=== PATIENT | female | born 1995 | race Two or more races ===

== ENCOUNTER → 2017-03-02 | Outpatient (REF) | payer OTHER ==
[~2017-03-02] MED LIST: AMOX500T PO; COLA100C5 PO; FERR325T3 PO; IBUP1TAB7 PO; PERCOCET PO
[2017-03-03 11:52] LABS: BASO % 0.4 % (0.0-1.0); EOS # 0.2 10^3/uL (0.0-0.50); EOS % 1.9 % (0.0-3.0); IMMATURE GRANULOCYTE % 0.3 % (0-0); LYMPH # 2.3 10^3/uL (1.5-6.5); LYMPH % 21.6 % (24.0-44.0); MEAN CORPUSCULAR HEMOGLOBIN 29.8 pg (27.0-33.0); MEAN CORPUSCULAR HGB CONC 33.7 g/dl (32.0-36.5); MEAN CORPUSCULAR VOLUME 88.3 fl (80.0-96.0); MONO # 0.8 10^3/uL (0.0-0.8); MONO % 7.2 % (0.0-5.0); NEUTROPHILS # 7.3 10^3/uL (1.8-7.7); NEUTROPHILS % 68.6 % (36.0-66.0); PLATELET COUNT, AUTOMATED 349 10^3/uL (150-450); WHITE BLOOD COUNT 10.6 10^3/uL (4.0-10.0)
[2017-03-03 12:35] LABS: ALBUMIN 3.7 GM/DL (3.2-5.2); ALKALINE PHOSPHATASE 139 U/L (45-117); ALT/SGPT 42 U/L (12-78); ANION GAP 9 MEQ/L (8-16); AST/SGOT 23 U/L (7-37); BILIRUBIN,TOTAL 0.4 MG/DL (0.2-1.0); BLOOD UREA NITROGEN 8 MG/DL (7-18); CARBON DIOXIDE LEVEL 28 MEQ/L (21-32); CHLORIDE LEVEL 104 MEQ/L (98-107); FREE T4 1.08 NG/DL (0.76-1.46); GLOMERULAR FILTRATION RATE > 60.0 (>60); GLUCOSE, FASTING 79 MG/DL (70-105); POTASSIUM SERUM 4.1 MEQ/L (3.5-5.1); SODIUM LEVEL 141 MEQ/L (136-145); TOTAL PROTEIN 7.4 GM/DL (6.4-8.2)
== END ==
LOC: M SFHCCLAY 14:27
PROVIDERS: ATTEND Nurse Practitioner Family
DX: F32.2 Major depressive disorder, single episode, severe without psychotic features (principal); R23.9 Unspecified skin changes; R19.4 Change in bowel habit

== ENCOUNTER → 2018-04-14 | Outpatient (REF) | payer OTHER | LOC: M SFHCCLAY 16:48 | PROVIDERS: ATTEND Nurse Practitioner Family | DX: R35.0 Frequency of micturition (principal) ==

== ENCOUNTER → 2018-06-08 | Outpatient (REF) | payer OTHER | LOC: M LAB REF 17:54 | PROVIDERS: ATTEND Advanced Practice Midwife | DX: Z12.4 Encounter for screening for malignant neoplasm of cervix (principal) ==

== ENCOUNTER → 2018-07-07 | Outpatient (REF) | payer OTHER | LOC: M SFHCCLAY 09:37 | PROVIDERS: ATTEND Family Medicine | DX: J02.9 Acute pharyngitis, unspecified (principal); Z20.818 Contact with and (suspected) exposure to other bacterial communicable diseases ==

== ENCOUNTER → 2019-07-13 | Outpatient (REF) | payer OTHER ==
[2019-07-13 16:19] LABS: BASO # 0.1 10^3/uL (0.0-0.2); BASO % 0.6 % (0.0-1.0); EOS # 0.1 10^3/uL (0.0-0.5); EOS % 1.3 % (0.0-3.0); HEMATOCRIT 38.8 % (36.0-47.0); HEMOGLOBIN 13.1 g/dl (12.0-15.5); LYMPH # 2.7 10^3/uL (1.5-5.0); MEAN CORPUSCULAR HEMOGLOBIN 31.3 pg (27.0-33.0); MEAN CORPUSCULAR HGB CONC 33.8 g/dl (32.0-36.5); MEAN CORPUSCULAR VOLUME 92.8 fl (80.0-96.0); MONO # 0.6 10^3/uL (0.0-0.8); MONO % 6.7 % (0.0-5.0); NEUTROPHILS # 5.3 10^3/uL (1.5-8.5); NEUTROPHILS % 60.2 % (36.0-66.0); PLATELET COUNT, AUTOMATED 329 10^3/uL (150-450); RED BLOOD COUNT 4.18 10^6/uL (4.00-5.40); WHITE BLOOD COUNT 8.7 10^3/uL (4.0-10.0)
[2019-07-13 16:37] LABS: ALBUMIN 3.6 GM/DL (3.2-5.2); ALT/SGPT 48 U/L (12-78); BILIRUBIN,TOTAL 0.9 MG/DL (0.2-1.0); BLOOD UREA NITROGEN 7 MG/DL (7-18); CALCIUM LEVEL 9.2 MG/DL (8.5-10.1); CARBON DIOXIDE LEVEL 27 MEQ/L (21-32); CHLORIDE LEVEL 103 MEQ/L (98-107); CREATININE FOR GFR 0.83 MG/DL (0.55-1.30); GLOMERULAR FILTRATION RATE > 60.0 (>60); GLUCOSE, FASTING 80 MG/DL (70-100); POTASSIUM SERUM 3.8 MEQ/L (3.5-5.1); SODIUM LEVEL 138 MEQ/L (136-145); TOTAL PROTEIN 7.6 GM/DL (6.4-8.2)
== END ==
LOC: M SFHCCLAY 10:01
PROVIDERS: ATTEND Nurse Practitioner Family
DX: N92.1 Excessive and frequent menstruation with irregular cycle (principal); R55 Syncope and collapse

== ENCOUNTER → 2019-09-09 | Outpatient (CLI) | payer BC | LOC: M LABSMTC 12:32 | PROVIDERS: ATTEND Family Medicine | DX: Z03.818 Encounter for observation for suspected exposure to other biological agents ruled out (principal) | CPT/HCPCS: C9803; U0002 ==

== ENCOUNTER → 2019-10-26 | Outpatient (CLI) | payer BC | LOC: M LABSMTC 11:32 | PROVIDERS: ATTEND Pediatrics | DX: Z20.828 Contact with and (suspected) exposure to other viral communicable diseases (principal) | CPT/HCPCS: C9803; U0002 ==

== ENCOUNTER → 2019-12-09 | Outpatient (CLI) | payer BC | LOC: M LABSMTC 11:20 | PROVIDERS: ATTEND Pediatrics | DX: Z11.59 Encounter for screening for other viral diseases (principal) ==

== ENCOUNTER → 2020-05-04 | Outpatient (REF) | payer OTHER ==
[2020-05-04 11:17] LABS: BASO % 0.3 % (0.0-1.0); EOS # 0.1 10^3/uL (0.0-0.5); EOS % 1.2 % (0.0-3.0); HEMATOCRIT 41.2 % (36.0-47.0); HEMOGLOBIN 13.5 g/dl (12.0-15.5); LYMPH # 1.7 10^3/uL (1.5-5.0); LYMPH % 25.1 % (24.0-44.0); MEAN CORPUSCULAR HEMOGLOBIN 29.5 pg (27.0-33.0); MEAN CORPUSCULAR HGB CONC 32.8 g/dl (32.0-36.5); MONO # 0.4 10^3/uL (0.0-0.8); MONO % 6.6 % (2.0-8.0); NEUTROPHILS # 4.4 10^3/uL (1.5-8.5); NEUTROPHILS % 66.5 % (36.0-66.0); PLATELET COUNT, AUTOMATED 337 10^3/uL (150-450); RED BLOOD COUNT 4.58 10^6/uL (4.00-5.40); WHITE BLOOD COUNT 6.7 10^3/uL (4.0-10.0)
[2020-05-04 11:52] LABS: ALBUMIN 3.8 GM/DL (3.2-5.2); ALT/SGPT 70 U/L (12-78); BILIRUBIN,TOTAL 0.4 MG/DL (0.2-1.0); BLOOD UREA NITROGEN 11 MG/DL (7-18); CALCIUM LEVEL 9.6 MG/DL (8.5-10.1); CARBON DIOXIDE LEVEL 30 MEQ/L (21-32); CHLORIDE LEVEL 103 MEQ/L (98-107); CREATININE FOR GFR 0.84 MG/DL (0.55-1.30); GLOMERULAR FILTRATION RATE > 60.0 (>60); GLUCOSE, FASTING 62 MG/DL (70-100); POTASSIUM SERUM 4.3 MEQ/L (3.5-5.1); SODIUM LEVEL 140 MEQ/L (136-145); TOTAL PROTEIN 7.7 GM/DL (6.4-8.2)
== END ==
LOC: M SFHCCLAY 08:52
PROVIDERS: ATTEND Physician Assistant
DX: R00.2 Palpitations (principal)

== ENCOUNTER → 2020-06-19 | Outpatient (CLI) | payer SELFPAY | LOC: M LABSMTC 12:41 | PROVIDERS: ATTEND Pediatrics | DX: Z11.52 Encounter for screening for COVID-19 (principal) ==

== ENCOUNTER → 2021-09-20 | Outpatient (CLI) | payer OTHER ==
[2021-09-20 13:24] LABS: BASO % 0.3 % (0.0-1.0); EOS # 0.1 10^3/uL (0.0-0.5); EOS % 1.1 % (0.0-3.0); LYMPH # 1.6 10^3/uL (1.5-5.0); LYMPH % 16.1 % (24.0-44.0); MEAN CORPUSCULAR HEMOGLOBIN 30.6 pg (27.0-33.0); MEAN CORPUSCULAR HGB CONC 33.3 g/dl (32.0-36.5); MEAN CORPUSCULAR VOLUME 91.8 fl (80.0-96.0); MONO # 0.6 10^3/uL (0.0-0.8); MONO % 5.9 % (2.0-8.0); NEUTROPHILS # 7.3 10^3/uL (1.5-8.5); PLATELET COUNT, AUTOMATED 311 10^3/uL (150-450); RED BLOOD COUNT 4.25 10^6/uL (4.00-5.40); WHITE BLOOD COUNT 9.6 10^3/uL (4.0-10.0)
[2021-09-20 13:52] LABS: CREATININE,RANDOM URINE 50.4 MG/DL; TOTAL PROTEIN,RANDOM URINE 11.4 MG/DL (0.0-12.0)
[2021-09-20 14:00] LABS: ALBUMIN 3.3 GM/DL (3.2-5.2); ALT/SGPT 17 U/L (12-78); BILIRUBIN,TOTAL 0.5 MG/DL (0.2-1.0); BLOOD UREA NITROGEN 6 MG/DL (7-18); CALCIUM LEVEL 9.8 MG/DL (8.5-10.1); CARBON DIOXIDE LEVEL 28 MEQ/L (21-32); CHLORIDE LEVEL 102 MEQ/L (98-107); CREATININE FOR GFR 0.64 MG/DL (0.55-1.30); GLOMERULAR FILTRATION RATE > 60.0 (>60); GLUCOSE, FASTING 91 MG/DL (70-100); SODIUM LEVEL 136 MEQ/L (136-145); TOTAL PROTEIN 6.7 GM/DL (6.4-8.2)
[2021-09-20 14:46] LABS: HEPATITIS C VIRUS ABY INDEX 0.1 INDEX (<0.8)
[2021-09-20 14:47] LABS: HIV 1&2 SCREEN CENTAUR NEGATIVE (NEGATIVE)
[2021-09-23 07:59] LABS: GC DNA AMPLIFICATION NEGATIVE (NEGATIVE)
== END ==
LOC: M PLALAB 11:23
PROVIDERS: ATTEND Obstetrics & Gynecology
DX: Z34.91 Encounter for supervision of normal pregnancy, unspecified, first trimester (principal); Z3A.09 9 weeks gestation of pregnancy

== ENCOUNTER → 2021-10-02 | Outpatient (CLI) | payer OTHER | LOC: M WHC 10:01 | PROVIDERS: ATTEND Obstetrics & Gynecology | DX: Z36.89 Encounter for other specified antenatal screening (principal); Z3A.09 9 weeks gestation of pregnancy ==

== ENCOUNTER → 2021-10-03 | Outpatient (CLI) | payer OTHER | LOC: M PLALAB 15:44 | PROVIDERS: ATTEND Obstetrics & Gynecology | DX: Z34.81 Encounter for supervision of other normal pregnancy, first trimester (principal) ==

== ENCOUNTER → 2021-11-27 | Outpatient (CLI) | payer OTHER | LOC: M WHC 11:02 | PROVIDERS: ATTEND Obstetrics & Gynecology | DX: Z36.89 Encounter for other specified antenatal screening (principal); Z3A.17 17 weeks gestation of pregnancy ==

== ENCOUNTER → 2021-12-20 | Outpatient (CLI) | payer OTHER | LOC: M WHC 12:08 | PROVIDERS: ATTEND Obstetrics & Gynecology | DX: Z36.2 Encounter for other antenatal screening follow-up (principal); Z3A.22 22 weeks gestation of pregnancy ==

== ENCOUNTER → 2022-01-20 | Outpatient (CLI) | payer OTHER ==
[2022-01-20 15:45] LABS: HEMATOCRIT 33.1 % (36.0-47.0); HEMOGLOBIN 10.7 g/dl (12.0-15.5); MEAN CORPUSCULAR HGB CONC 32.3 g/dl (32.0-36.5); MEAN CORPUSCULAR VOLUME 92.7 fl (80.0-96.0); PLATELET COUNT, AUTOMATED 270 10^3/uL (150-450); RED BLOOD COUNT 3.57 10^6/uL (4.00-5.40); WHITE BLOOD COUNT 9.2 10^3/uL (4.0-10.0)
[2022-01-20 16:05] LABS: ALBUMIN 2.6 GM/DL (3.2-5.2); ALT/SGPT 15 U/L (12-78); BILIRUBIN,TOTAL 0.3 MG/DL (0.2-1.0); BLOOD UREA NITROGEN 5 MG/DL (7-18); CALCIUM LEVEL 9.1 MG/DL (8.5-10.1); CARBON DIOXIDE LEVEL 26 MEQ/L (21-32); CHLORIDE LEVEL 103 MEQ/L (98-107); CREATININE FOR GFR 0.62 MG/DL (0.55-1.30); GLOMERULAR FILTRATION RATE > 60.0 (>60); GLUCOSE CHALLENGE TEST 1 HOUR 133 MG/DL (LESS THAN 140); GLUCOSE, FASTING 133 MG/DL (70-100); POTASSIUM SERUM 3.6 MEQ/L (3.5-5.1); SODIUM LEVEL 135 MEQ/L (136-145); TOTAL PROTEIN 6.5 GM/DL (6.4-8.2)
[2022-01-20 16:33] LABS: CREATININE,RANDOM URINE 21.6 MG/DL; TOTAL PROTEIN,RANDOM URINE < 5.0 MG/DL (0.0-12.0)
[2022-01-20 17:09] LABS: GC DNA AMPLIFICATION NEGATIVE (NEGATIVE)
== END ==
LOC: M PLALAB 11:21
PROVIDERS: ATTEND Obstetrics & Gynecology
DX: Z34.92 Encounter for supervision of normal pregnancy, unspecified, second trimester (principal)

== ENCOUNTER 2022-01-26 18:56 | Outpatient (CLI) | payer OTHER ==
[~2022-01-26] VITALS: Ht 160 cm; Wt 101.5 kg
[2022-01-26 19:36] VITALS: BP 129/60
== END 2022-01-26 22:50 | disposition home or self-care (01) ==
LOC: M LDO 18:56
PROVIDERS: ATTEND Obstetrics & Gynecology
DX: O26.892 Other specified pregnancy related conditions, second trimester (principal); R25.2 Cramp and spasm; O26.852 Spotting complicating pregnancy, second trimester; M54.50 Low back pain, unspecified; Z3A.27 27 weeks gestation of pregnancy
CPT/HCPCS: 59025; 76816; 76817; G0463

== ENCOUNTER 2022-03-05 11:34 | Outpatient (CLI) | payer OTHER ==
[~2022-03-05] VITALS: Ht 160 cm; Wt 106.7 kg
[2022-03-05 11:53] VITALS: BP 124/69
[2022-03-05] MEDS ORDERED: ECOT81TA5 PO (11:55)
[2022-03-05] MEDS ORDERED: LEXA5TAB13 PO (11:55)
[2022-03-05] MEDS ORDERED: PRENTAB9 PO (11:55)
[2022-03-05] MEDS ORDERED: HOME MED LIST COMPLETE! XX SCH (12:00)
== END 2022-03-05 13:27 | disposition home or self-care (01) ==
LOC: M LDO 11:34
PROVIDERS: ATTEND Advanced Practice Midwife
DX: O36.8130 Decreased fetal movements, third trimester, not applicable or unspecified (principal); Z3A.33 33 weeks gestation of pregnancy
CPT/HCPCS: 59025; G0463

== ENCOUNTER → 2022-03-12 | Outpatient (CLI) | payer OTHER ==
[~2022-03-12] MED LIST changes: +ECOT81TA5 PO; +LEXA5TAB13 PO; +PRENTAB9 PO
[2022-03-12 14:10] LABS: ALBUMIN 2.7 G/DL (3.2-5.2); ALKALINE PHOSPHATASE 119 U/L (46-116); ALT/SGPT 13 U/L (7.0-40); AST/SGOT 17 U/L (<34); BILIRUBIN,TOTAL 0.5 MG/DL (0.3-1.2); BLOOD UREA NITROGEN 6 MG/DL (9-23); CALCIUM LEVEL 9.2 MG/DL (8.5-10.1); CARBON DIOXIDE LEVEL 25 MMOL/L (20-31); CHLORIDE LEVEL 100 MMOL/L (98-107); CREATININE FOR GFR 0.63 MG/DL (0.55-1.30); GLOMERULAR FILTRATION RATE > 60.0 (>60); GLUCOSE, FASTING 99 MG/DL (60-100); POTASSIUM SERUM 4.1 MMOL/L (3.5-5.1); SODIUM LEVEL 137 MMOL/L (136-145); TOTAL PROTEIN 6.1 G/DL (5.7-8.2)
== END ==
LOC: M PLALAB 09:45
PROVIDERS: ATTEND Obstetrics & Gynecology
DX: L29.9 Pruritus, unspecified (principal)

== ENCOUNTER → 2022-03-18 | Outpatient (REF) | payer OTHER ==
[2022-03-18 17:23] LABS: BASO % 0.1 % (0.0-1.0); EOS # 0.1 10^3/uL (0.0-0.5); EOS % 0.6 % (0.0-3.0); HEMATOCRIT 33.5 % (36.0-47.0); HEMOGLOBIN 10.5 g/dl (12.0-15.5); LYMPH # 1.5 10^3/uL (1.5-5.0); LYMPH % 14.6 % (24.0-44.0); MEAN CORPUSCULAR HEMOGLOBIN 28.4 pg (27.0-33.0); MEAN CORPUSCULAR HGB CONC 31.3 g/dl (32.0-36.5); MEAN CORPUSCULAR VOLUME 90.5 fl (80.0-96.0); MONO # 0.5 10^3/uL (0.0-0.8); MONO % 5.2 % (2.0-8.0); NEUTROPHILS # 8.1 10^3/uL (1.5-8.5); NEUTROPHILS % 78.5 % (36.0-66.0); PLATELET COUNT, AUTOMATED 287 10^3/uL (150-450); WHITE BLOOD COUNT 10.3 10^3/uL (4.0-10.0)
[2022-03-18 17:40] LABS: LIPASE 44 U/L (12-53)
[2022-03-18 17:43] LABS: ALBUMIN 2.6 G/DL (3.2-5.2); ALKALINE PHOSPHATASE 124 U/L (46-116); ALT/SGPT 11 U/L (7.0-40); AST/SGOT 14 U/L (<34); BILIRUBIN,DIRECT 0.1 MG/DL (<0.4); BILIRUBIN,TOTAL 0.4 MG/DL (0.3-1.2); BLOOD UREA NITROGEN 7 MG/DL (9-23); CALCIUM LEVEL 8.8 MG/DL (8.5-10.1); CARBON DIOXIDE LEVEL 24 MMOL/L (20-31); CHLORIDE LEVEL 104 MMOL/L (98-107); GLOMERULAR FILTRATION RATE > 60.0 (>60); GLUCOSE, FASTING 124 MG/DL (60-100); POTASSIUM SERUM 4.2 MMOL/L (3.5-5.1); SODIUM LEVEL 136 MMOL/L (136-145)
== END ==
LOC: M SFHCCLAY 09:02
PROVIDERS: ATTEND Family Medicine
DX: R10.11 Right upper quadrant pain (principal)

== ENCOUNTER → 2022-03-19 | Outpatient (CLI) | payer OTHER | LOC: M RAD 08:34 | PROVIDERS: ATTEND Family Medicine | DX: R10.11 Right upper quadrant pain (principal) ==

== ENCOUNTER → 2022-03-25 | Outpatient (REF) | payer OTHER | LOC: M SFHCWAGY 13:00 | PROVIDERS: ATTEND Specialist | DX: Z34.83 Encounter for supervision of other normal pregnancy, third trimester (principal) ==

== ENCOUNTER 2022-03-30 03:52 | Outpatient (CLI) | payer OTHER ==
[~2022-03-30] VITALS: Ht 160 cm; Wt 105.6 kg
[2022-03-30 04:18] VITALS: BP 121/58
[2022-03-30] MEDS ORDERED: HOME MED LIST COMPLETE! XX SCH (04:30)
[2022-03-30 05:18] VITALS: BP 118/56
[2022-03-30 06:35] VITALS: BP 98/50
[2022-04-01] MEDS ORDERED: LEXA5TAB13 (07:44)
== END 2022-03-30 07:45 | disposition home or self-care (01) ==
LOC: M LDO 03:52
PROVIDERS: ATTEND Obstetrics & Gynecology
DX: O26.893 Other specified pregnancy related conditions, third trimester (principal); N89.8 Other specified noninflammatory disorders of vagina; O47.03 False labor before 37 completed weeks of gestation, third trimester; Z3A.36 36 weeks gestation of pregnancy
CPT/HCPCS: 59025; 76815; G0463

== ENCOUNTER → 2022-04-01 | Outpatient (REF) | payer OTHER ==
[~2022-04-01] MED LIST changes: +LEXA5TAB13
== END ==
LOC: M SFHCCAPE 16:47
PROVIDERS: ATTEND Physician Assistant
DX: J22 Unspecified acute lower respiratory infection (principal)

== ENCOUNTER 2022-04-04 12:37 | Outpatient (CLI) | payer OTHER ==
[~2022-04-04] VITALS: Ht 160 cm; Wt 107.5 kg
[2022-04-04] VITALS (8 sets, daily range): BP systolic 88–167; BP diastolic 64–91
[2022-04-04] MEDS ORDERED: PRENTAB9 PO (12:52)
[2022-04-04] MEDS ORDERED: HOME MED LIST COMPLETE! XX SCH (13:00)
[2022-04-04] MEDS ORDERED: LEXA5TAB13 PO (13:08)
[2022-04-04 14:00] LABS: HEMATOCRIT 32.7 % (36.0-47.0); HEMOGLOBIN 10.4 g/dl (12.0-15.5); MEAN CORPUSCULAR HGB CONC 31.8 g/dl (32.0-36.5); MEAN CORPUSCULAR VOLUME 87.9 fl (80.0-96.0); PLATELET COUNT, AUTOMATED 283 10^3/uL (150-450); RED BLOOD COUNT 3.72 10^6/uL (4.00-5.40); WHITE BLOOD COUNT 8.8 10^3/uL (4.0-10.0)
[2022-04-04 14:01] LABS: CREATININE,RANDOM URINE 13.7 MG/DL
[2022-04-04 14:04] LABS: TOTAL PROTEIN,RANDOM URINE < 6.0 MG/DL (0.0-14.0)
[2022-04-04 14:31] LABS: URIC ACID 6.2 MG/DL (3.1-7.8)
[2022-04-04 14:33] LABS: LDH LACTATE DEHYDROGENASE 152 U/L (120-246)
[2022-04-04 14:34] LABS: ALT/SGPT 13 U/L (7.0-40); AST/SGOT 14 U/L (<34); BILIRUBIN,TOTAL 0.4 MG/DL (0.3-1.2); CREATININE FOR GFR 0.68 MG/DL (0.55-1.30); GLOMERULAR FILTRATION RATE > 60.0 (>60)
== END 2022-04-04 17:00 | disposition home or self-care (01) ==
LOC: M LDO 12:37
PROVIDERS: ATTEND Advanced Practice Midwife
DX: O26.893 Other specified pregnancy related conditions, third trimester (principal); R03.0 Elevated blood-pressure reading, without diagnosis of hypertension; Z87.59 Personal history of other complications of pregnancy, childbirth and the puerperium; Z3A.37 37 weeks gestation of pregnancy
CPT/HCPCS: 36415; 59025; 82247; 82565; 82570; 83615; 84156; 84450; 84460; 84550; 85027; G0378; G0463

== ENCOUNTER → 2022-04-10 | Outpatient (CLI) | payer OTHER | LOC: M LABSMTC 09:29 | PROVIDERS: ATTEND Anesthesiology | DX: Z01.812 Encounter for preprocedural laboratory examination (principal); Z11.52 Encounter for screening for COVID-19 ==

== ENCOUNTER 2022-04-15 05:04 | Inpatient (IN) | payer OTHER ==
[2022-04-15] VITALS (9 sets, daily range): BP systolic 108–129; BP diastolic 56–77
[~2022-04-15] VITALS: Ht 160 cm; Wt 106.6 kg
[2022-04-15] MEDS ORDERED: HOME MED LIST COMPLETE! XX SCH (05:15)
[2022-04-15] MEDS ORDERED: LR 1,000 ML IV SCH ×4 (06:05→15:25)
[2022-04-15] MEDS ORDERED: BICITRA 30ML SOLN UDC PO ONE (06:05)
[2022-04-15] MEDS ORDERED: ceFAZolin SOD 2 GM in IV 1 EA IV ONE ×5 (06:05→15:36)
[2022-04-15] MEDS ORDERED: LACTATED RINGER'S 1000 ML IV ONE (06:05)
[2022-04-15 06:12] LABS: HEMATOCRIT 35.6 % (36.0-47.0); HEMOGLOBIN 11.4 g/dl (12.0-15.5); MEAN CORPUSCULAR HEMOGLOBIN 27.9 pg (27.0-33.0); MEAN CORPUSCULAR VOLUME 87.3 fl (80.0-96.0); PLATELET COUNT, AUTOMATED 287 10^3/uL (150-450); RED BLOOD COUNT 4.08 10^6/uL (4.00-5.40); WHITE BLOOD COUNT 9.4 10^3/uL (4.0-10.0)
[2022-04-15] MEDS ORDERED: OXYTOCIN INJ 10UNITS/ML 1ML VIAL As Ordered ONE (07:45)
[2022-04-15] MEDS ORDERED: MORPHINE PRES-FREE INJ 10 MG/10 ML VIAL As Ordered ONE (07:45)
[2022-04-15] MEDS ORDERED: ePHEDrine SULFATE 25 MG/5 ML(5MG/ML) SYRINGE As Ordered ONE (07:50)
[2022-04-15] MEDS ORDERED: ONDANSETRON 4MG 2ML VIAL As Ordered ONE (07:51)
[2022-04-15] MEDS ORDERED: PHENYLephrine 500MCG 5ML (100MCG/ML) SYRINGE As Ordered ONE (08:27)
[2022-04-15] MEDS ORDERED: KETOROLAC 60MG 2ML VIAL As Ordered ONE (08:46)
[2022-04-15] MEDS ORDERED: ESCITALOPRAM OXALATE 5MG TABLET (LEXAPRO) PO SCH (09:00)
[2022-04-15] MEDS ORDERED: OXYTOCIN 30UNITS IN 0.9% NaCl 500ML IV BAG As Ordered ONE (09:02)
[2022-04-15] MEDS ORDERED: diphenhydrAMINE 50MG/ML VIAL As Ordered ONE (09:06)
[2022-04-15] MEDS ORDERED: NALOXONE INJ 0.4MG/1ML VIAL IV PRN ×4 (09:40→10:20)
[2022-04-15] MEDS ORDERED: NALBUPHINE HCL 10 MG/ML 1ML AMP IV PRN (09:40)
[2022-04-15] MEDS ORDERED: fentaNYL 100 MCG/2 ML INJECTION IV PRN ×2 (09:40→10:20)
[2022-04-15] MEDS ORDERED: diphenhydrAMINE 50MG/ML VIAL IV PRN ×3 (09:40→10:20)
[2022-04-15] MEDS ORDERED: METOCLOPRAMIDE INJ 10MG/2ML VIAL IV PRN ×2 (09:40→10:20)
[2022-04-15] MEDS ORDERED: ONDANSETRON 4MG 2ML VIAL IV PRN (09:40)
[2022-04-15] MEDS ORDERED: **NOTE PATIENT COMMENT** MISC XX SCH ×2 (09:40→10:20)
[2022-04-15] MEDS ORDERED: SLF 3 ML SYR IV SCH (09:40)
[2022-04-15] MEDS ORDERED: oxyCODONE 5MG TAB PO PRN (10:10)
[2022-04-15] MEDS ORDERED: DOCUSATE SODIUM 100MG CAPSULE PO PRN (10:10)
[2022-04-15] MEDS ORDERED: RHOGAM 300MCG (1500IU) INJ IM SCH (10:10)
[2022-04-15] MEDS ORDERED: SIMETHICONE 80MG CHEW TAB PO PRN (10:10)
[2022-04-15] MEDS ORDERED: OXYTOCIN DRIP 30 UNITS in IV 1 EA IV SCH (10:15)
[2022-04-15] MEDS ORDERED: PERCOCET 5MG/325MG TAB PO PRN (10:20)
[2022-04-15] MEDS: SLF 3 ML SYR IV SCH ×2 (10:20→18:20)
[2022-04-15] MEDS ORDERED: OXYC-517 PO (11:12)
[2022-04-15] MEDS ORDERED: ACET-683 PO (11:12)
[2022-04-15] MEDS ORDERED: IBUP-1022 PO (11:12)
[2022-04-15] MEDS ORDERED: COLA100C5 PO (11:12)
[2022-04-15] MEDS: ACETAMINOPHEN 500 MG TAB PO SCH ×2 (12:37→18:47)
[2022-04-15] MEDS: ONDANSETRON 4MG 2ML VIAL IV PRN ×2 (14:20→21:26)
[2022-04-15] MEDS: KETOROLAC 30 MG/ML 1ML VIAL IV SCH ×2 (16:44→22:00)
[2022-04-15] MEDS ORDERED: LR 1,000 ML IV ONE (17:20)
[2022-04-15] MEDS: LR 1,000 ML IV SCH (20:48)
[2022-04-16] MEDS: ACETAMINOPHEN 500 MG TAB PO SCH ×4 (00:17→17:21)
[2022-04-16 02:00] VITALS: BP 120/58
[2022-04-16] MEDS: SLF 3 ML SYR IV SCH (02:25)
[2022-04-16] MEDS: KETOROLAC 30 MG/ML 1ML VIAL IV SCH (04:00)
[2022-04-16] MEDS: oxyCODONE 5MG TAB PO PRN ×2 (04:13→08:48)
[2022-04-16] MEDS: LR 1,000 ML IV SCH (04:45)
[2022-04-16 05:41] VITALS: BP 121/60
[2022-04-16 06:44] LABS: HEMATOCRIT 26.1 % (36.0-47.0); MEAN CORPUSCULAR HGB CONC 31.8 g/dl (32.0-36.5); MEAN CORPUSCULAR VOLUME 88.2 fl (80.0-96.0); PLATELET COUNT, AUTOMATED 202 10^3/uL (150-450); RED BLOOD COUNT 2.96 10^6/uL (4.00-5.40); WHITE BLOOD COUNT 9.8 10^3/uL (4.0-10.0)
[2022-04-16 06:46] LABS: HEMOGLOBIN 8.3 g/dl (12.0-15.5)
[2022-04-16] MEDS: PRENATAL VITAMINS CHEWABLE TABLET PO SCH (09:00)
[2022-04-16 10:00] VITALS: BP 131/64
[2022-04-16] MEDS: IBUPROFEN 600MG TAB PO SCH ×2 (12:29→17:20)
[2022-04-16 14:00] VITALS: BP 112/53
[2022-04-16 18:00] VITALS: BP 121/62
[2022-04-16] MEDS ORDERED: ESCITALOPRAM OXALATE 5MG TABLET (LEXAPRO) PO SCH (21:00)
[2022-04-16 22:00] VITALS: BP 105/54
[2022-04-17] MEDS: ACETAMINOPHEN 500 MG TAB PO SCH ×2 (00:16→06:06)
[2022-04-17] MEDS: IBUPROFEN 600MG TAB PO SCH ×2 (00:16→06:05)
[2022-04-17 02:00] VITALS: BP 114/63
[2022-04-17 06:00] VITALS: BP 122/61
[2022-04-17] MEDS: PRENATAL VITAMINS CHEWABLE TABLET PO SCH (09:00)
[2022-04-17] MEDS ORDERED: MEASLES,MUMPS,RUBELLA VACCINE INJ (MMR-II) SC.IMMUN ONE (09:00)
[2022-04-18] MEDS ORDERED: OXYC-517 PO (17:04)
== END 2022-04-17 10:30 | disposition home or self-care (01) | DRG 540 ==
LOC: M LDI 05:04 → M OBS 10:52
PROVIDERS: ADMIT Obstetrics & Gynecology; ATTEND Obstetrics & Gynecology
PROC: 10D00Z1 Extraction of Products of Conception, Low, Open Approach (ICD-10-PCS; principal; 2022-04-15 07:30)
DX: O34.211 Maternal care for low transverse scar from previous cesarean delivery (principal); Z3A.39 39 weeks gestation of pregnancy; Z37.0 Single live birth

== ENCOUNTER → 2023-04-21 | Outpatient (REF) | payer OTHER ==
[~2023-04-21] MED LIST changes: +ACET-683 PO; +IBUP-1022 PO; +OXYC-517 PO
[2023-04-21 17:43] LABS: BASO % 0.5 % (0.0-1.0); EOS # 0.1 10^3/uL (0.0-0.5); EOS % 1.7 % (0.0-3.0); HEMATOCRIT 43.1 % (36.0-47.0); HEMOGLOBIN 14.3 g/dl (12.0-15.5); LYMPH # 1.9 10^3/uL (1.5-5.0); LYMPH % 29.1 % (24.0-44.0); MEAN CORPUSCULAR HEMOGLOBIN 30.2 pg (27.0-33.0); MEAN CORPUSCULAR HGB CONC 33.2 g/dl (32.0-36.5); MEAN CORPUSCULAR VOLUME 91.1 fl (80.0-96.0); MONO # 0.4 10^3/uL (0.0-0.8); MONO % 6.2 % (2.0-8.0); NEUTROPHILS # 4.1 10^3/uL (1.5-8.5); NEUTROPHILS % 62.2 % (36.0-66.0); PLATELET COUNT, AUTOMATED 307 10^3/uL (150-450); RED BLOOD COUNT 4.73 10^6/uL (4.00-5.40); WHITE BLOOD COUNT 6.5 10^3/uL (4.0-10.0)
[2023-04-21 18:06] LABS: ALKALINE PHOSPHATASE 114 U/L (46-116); ALT/SGPT 51 U/L (7.0-40); AST/SGOT 28 U/L (<34); BILIRUBIN,TOTAL 0.5 MG/DL (0.3-1.2); BLOOD UREA NITROGEN 10 MG/DL (9-23); CALCIUM LEVEL 9.6 MG/DL (8.5-10.1); CARBON DIOXIDE LEVEL 28 MMOL/L (20-31); CHLORIDE LEVEL 107 MMOL/L (98-107); CHOLESTEROL LEVEL 179 MG/DL (<200); CREATININE FOR GFR 0.73 MG/DL (0.55-1.30); GLOMERULAR FILTRATION RATE > 60.0 (>60); GLUCOSE, FASTING 94 MG/DL (60-100); HDL CHOLESTEROL 51.1 MG/DL (>40); LDL CHOLESTEROL 114.1 MG/DL (<100); NON-HDL-C 127.9 MG/DL; POTASSIUM SERUM 4.5 MMOL/L (3.5-5.1); SODIUM LEVEL 139 MMOL/L (136-145); TOTAL PROTEIN 7.5 G/DL (5.7-8.2); TRIGLYCERIDES LEVEL 69 MG/DL (<150)
[2023-04-21 18:07] LABS: THYROID STIMULATING HORMONE 1.233 uIU/ML (0.55-4.78)
[2023-04-21 18:10] LABS: HEMOGLOBIN A1c 5.3 % (4.0-6.0)
== END ==
LOC: M SFHCCLAY 10:22
PROVIDERS: ATTEND Nurse Practitioner Family
DX: F32.2 Major depressive disorder, single episode, severe without psychotic features (principal); E66.01 Morbid (severe) obesity due to excess calories; Z68.41 Body mass index [BMI] 40.0-44.9, adult